=== PATIENT | female | born 1985 | race Two or more races ===

== ENCOUNTER 2016-11-30 04:15 | Emergency (ER) | payer OTHER ==
[~2016-11-30] VITALS: Ht 162.6 cm; Wt 56.7 kg
--- NOTE | 2016-11-30 04:17 | NUR ---
TO BED 5 A 31 YO FEMALE BIBRA 97, C/O HIVES X 4 DAYS S/P NAD IV DETOX THERAPY. SEEN BY PCP, ISSUED STEROIDS, WHICH PT HAS NOT TAKEN. NO SOB NOTED. 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 AAOX4, AMBULATORY. CLEAR LUNGS. VSS. NOTED WITH GENERALIZED HIVES. GOWNED. VS MONITORING ON. AWAITING FOR ER MD ADDISON.
--- NOTE | 2016-11-30 04:25 | NUR ---
Dr Monroe at bedside for eval.
[2016-11-30] MEDS ORDERED: predniSONE 20 MG TABLET ONE (04:28)
[2016-11-30] MEDS ORDERED: FAMOTIDINE (20 MG) 20 MG TABLET ONE (04:31)
[2016-11-30] MEDS: predniSONE 20 MG TABLET PO ONE (04:33)
[2016-11-30] MEDS: FAMOTIDINE (20 MG) 20 MG TABLET PO ONE (04:35)
--- NOTE | 2016-11-30 04:35 | NUR ---
MEDICATED PATIENT ORDERED BY DR AMBRIZ.
--- NOTE | 2016-11-30 04:58 | NUR ---
IV removed. Catheter intact and site benign. Pressure and 4x4 applied to site. No bleeding noted. Patient discharged to home in stable condition. Written and verbal after care instructions given. Patient verbalizes understanding of instruction. Patient is ambulatory with a steady gait, accompanied by friend.
[2016-11-30 05:00] VITALS: BP 107/58
== END 2016-11-30 05:01 | disposition home or self-care (01) ==
LOC: ER 04:18
DX: L50.9 Urticaria, unspecified (principal); K21.9 Gastro-esophageal reflux disease without esophagitis; F41.0 Panic disorder [episodic paroxysmal anxiety]
CPT/HCPCS: A4606; Z7610